=== PATIENT | female | born 1960 | race Two or more races ===

== ENCOUNTER 2021-02-22 06:35 | Day surgery (SDC) | payer OTHER ==
[~2021-02-22 06:35] MED LIST: ASA81 MG; CARAFATE1 GM PO; CIPRO500 MG PO; CRESTOR20 MG PO; GABAPENTIN800 MG; HUMALOG100 UNIT/2; LANTUS100 U/ML; LISINOPRIL2.5 MG; METFORMIN HCL1000 MG; OSEL75CA PO; PANTOPRAZOLE SO40 MG PO
[2021-02-22] MEDS ORDERED: ULTRACET PO (11:15)
[2021-03-06] MEDS ORDERED: CRESTOR20 MG PO (15:06)
== END 2021-02-22 15:35 | disposition home or self-care (01) ==
LOC: CIR.AMB 06:35
PROVIDERS: ATTEND Surgery
DX: R15.9 Full incontinence of feces (principal); Z20.822 Contact with and (suspected) exposure to COVID-19
CPT/HCPCS: 64581; C1778

== ENCOUNTER 2021-03-08 06:10 | Day surgery (SDC) | payer OTHER ==
[~2021-03-08 06:10] MED LIST changes: +ULTRACET PO
[2021-03-08] MEDS ORDERED: ULTRACET PO (10:59)
== END 2021-03-08 13:35 | disposition home or self-care (01) ==
LOC: CIR.AMB 06:10
PROVIDERS: ATTEND Surgery
DX: R15.9 Full incontinence of feces (principal); Z20.822 Contact with and (suspected) exposure to COVID-19
CPT/HCPCS: 64590; L8679; 95972